=== PATIENT | female | born 1990 | race Two or more races ===

== ENCOUNTER 2016-09-14 12:17 | Observation (INO) | payer OTHER ==
[~2016-09-14 12:17] MED LIST: ZOFR4TAB3 SL
[2016-09-14] MEDS ORDERED: ACETAMINOPHEN 325 MG TAB PO PRN (13:30)
[2016-09-14] MEDS ORDERED: ONDANSETRON ODT 4 MG TAB PO PRN (13:30)
[2016-09-14] MEDS ORDERED: SODIUM CHLORIDE 0.9% FLUSH 5 ML FLUSH IVF SCH (13:30)
[2016-09-14] MEDS ORDERED: SODIUM CHLORIDE 0.9% FLUSH 5 ML FLUSH IVF PRN (13:30)
--- NOTE | 2016-09-14 13:34 | HHI.HP ---
HPI Chief Complaint non-reassuring testing, 12/09 BPP in office Date Seen: Sep 14, 2016 Time Seen: 11:30 Travel History International Travel<30 Days: No Contact w/Intl Traveler<30Days: No Known Affected Area: No History of Present Illness HPI 26 yo limited-[place] speaking G1 with EDC 10/02/16 presented to office for routine OB visit and testing due to size less than dates. Originally EFW was 46 %tile at 21 week anatomy scan; pt was measuring small so growth ordered at 31 weeks, EFW 29%tile at that time. Continued to measure small for dates so additional growth at 35 wks showed EFW only 13%tile. Today in office 48 BPP and UA doppler upper limits of normal with CHILO borderline at 7cm. NST was reactive, but due to 610 testing d/w pt recommendation for delivery based on non-reassuring testing and term-status, or at the very least extended monitoring with repeat official BPP at hospital. Pt has no complaints, pain 0/ 10, no contractions, no VB or LOF. Endorses normal movement. Pain 1/10 low pelvis pressure. 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 Para: 0 : 1 Last Menstrual Period: Dec 27, 2015 Miscarriage: 0 : 0 History Past Medical History Narrative Medical denies Obstetric History Obstetric History G1 = current, male Past Surgical History Narrative Surgical denies Family History Family History: Negative Social History Alcohol Use: No Tobacco Use: No Substance Abuse: No Allergies-Medications (Allergen,Severity, Reaction): Coded Allergies: No Known Allergies (Unverified , 05/31/16) Home Meds Active Scripts Ondansetron (Zofran ODT)4 Mg Tab4 Mg SL Q6H PRN (NAUSEA) #15 TAB Ref 2 FOR NAUSEA/VOMITING Prov:Bhumi Villalba MD 05/31/16 Review of Systems General / Constitutional: Weight Gain (18# since conception), No: Fever, Chills, Other Eyes: No: Diploplia, Blurred Vision, Visual changes, Pain, Photophobia HENT: No: Headaches, Vertigo, Lightheadedness Cardiovascular: No: Irregular Rhythm, Chest Pain or Discomfort, Palpitations, Tachycardia, Syncope, Varicosities, Edema, Cyanosis Respiratory: No: Cough, Short of Breath, Other Gastrointestinal: No: Nausea, Vomiting, Diarrhea Genitourinary: No: Decreased Urinary Output, Oliguria Musculoskeletal: No: Limited ROM, Weakness, Cramping, Edema, Pain Skin: No Rash, No Itching, No Dryness, No Lumps, No Change in Pigmentation, No Change in Nails, No Alopecia, No Lesions Neurologic: No: Weakness, Dizziness, Syncope, Focal Abnormalities, Coordination Problem, Headache, Slurred Speech, Seizures Psychiatric: No: Depression, Suicidal Ideations, Homicidal Ideation Endocrine: No: Heat Intolerance, Cold Intolerance, Polydipsia, Polyuria, Other Physical Exam Narrative GENERAL: Well-nourished, well-developed patient. SKIN: Warm and dry. HEAD: Normocephalic and atraumatic. EYES: No scleral icterus. No injection or drainage. ENT: No nasal drainage noted. Mucous membranes pink. Airway patent. NECK: Supple, trachea midline. No JVD. CARDIOVASCULAR: Regular rate and rhythm without murmurs, gallops, or rubs. RESPIRATORY: Breath sounds equal bilaterally. No accessory muscle use. BREASTS: deeferred ABDOMEN/GI: Abdomen soft, non-tender, bowel sounds present, no rebound, no guarding Gravid to [37] weeks size Fundal Height: [33] GENITOURINARY: External Genitalia: intact and normal in appearance BUS glands: [wnl] Cervix: [mid] Dilatation: [cl] Effacement: [th] Station: [-3] Presentation: [vtx] Membranes: [intact Uterine Contractions: [none] FHT's: Category: [I] in office Baseline: [130s] Reactive: [y] Variability: [y] Decels: [n] EXTREMITIES: No cyanosis or edema. BACK: Nontender without obvious deformity. No CVA tenderness. NEUROLOGICAL: Awake and alert. Motor and sensory grossly within normal limits. Five out of 5 muscle strength in all muscle groups. Normal speech. Data Data Vital Signs Reviewed: Yes Orders Us Ob Bpp Wo Nst (09/14/16 ) Place In Observation (09/14/16 ) Diet Liquid (09/14/16 Lunch) Vital Signs (Adult) PRINCESS.P4E-PRLXA AWAKE (09/14/16 13:17) ^ Heart (09/14/16 13:17) Activity Bed Rest With Brp (09/14/16 13:17) Complete Blood Count With Diff (09/14/16 13:17) Urinalysis - C+S If Indicated (09/14/16 13:17) Acetaminophen (Tylenol) (09/14/16 13:30) Sodium Chloride 0.9% Flush (Ns Flush) (09/14/16 13:30) Sodium Chloride 0.9% Flush (Ns Flush) (09/14/16 13:30) Ondansetron Odt (Zofran Odt) (09/14/16 13:30) Hold Clot (09/14/16 13:17) Specimen To Be Collected PRN (09/14/16 13:17) Assessment/Plan Problem List: (1) Antepartum non-reassuring heart rate or rhythm affecting care of mother (2) Small for gestational age fetus affecting management of mother, third trimester, single gestation Assessment and Plan 26 yo with EDC 10/02/16, 37w3d today, admit for extended monitoring, testing due to non-reassuring office testing 1) non-reassuring office testing, BPP 8: -2 for breathing & -2 for tone; reactive NST in office; borderline CHILO 7cm, significant reduction in growth from 46%>29%>13% from 21>31>35 weeks; discussed plan of care with Dr. Vivar, OB sound effects person; plan for AP admission, extended monitoring, repeat BPP at hospital (official); further decision to be made after additional testing performed 2) small for gestational age: grade 3 placenta, borderline UA doppler (upper limits of normal); no other abnormalities 3) GBS negative 4) status: male, vertex, Cat I tracing, needs repeat BPP evaluation due to 4/8 in office Discharge Planning not meeting criteria Estella Pagan MD Sep 14, 2016 13:34
[2016-09-14 15:26] LABS: AUTOMATED NEUTROPHIL # 4.6 TH/MM3 (1.8-7.7); BASOPHIL % 0.3 % (0.0-2.0); EOSINOPHIL # 0.1 TH/MM3 (0-0.4); EOSINOPHIL % 1.7 % (0.0-4.0); HEMATOCRIT 37.1 % (35.0-46.0); HEMO FLAGS DIFF FINAL; LYMPH % 23.5 % (9.0-44.0); LYMPHOCYTE # 1.6 TH/MM3 (1.0-4.8); MEAN CELL VOLUME 93.1 FL (80.0-100.0); MEAN CORPUSCULAR HEMOGLOBIN 31.4 PG (27.0-34.0); MEAN CORPUSCULAR HGB CONC 33.7 % (32.0-36.0); MONO % 7.2 % (0.0-8.0); NEUT % 67.3 % (16.0-70.0); PLATELET COUNT 207 TH/MM3 (150-450); RED BLOOD COUNT 3.99 MIL/MM3 (4.00-5.30); WHITE BLOOD COUNT 6.8 TH/MM3 (4.0-11.0)
[2016-09-14 15:51] LABS: BACTERIA, URINE RARE /hpf; BLOOD, URINE NEG (NEG); COMMENT (UR) CULT NOT INDICATED; CULTURE IF INDICATED CULT NOT INDICATED; GLUCOSE,URINE NEG (NEG); KETONE, URINE NEG (NEG); MUCUS URINE FEW /lpf (OCC); NITRITE,URINE NEG (NEG); SQUAMOUS EPITHELIAL CELL URINE 4 /hpf (0-5); URINE COLOR YELLOW (YELLW/STRAW)
== END 2016-09-14 15:55 | disposition home or self-care (01) ==
LOC: H2EA 12:17
PROVIDERS: ADMIT Obstetrics & Gynecology; ATTEND Obstetrics & Gynecology
DX: O36.5930 Maternal care for other known or suspected poor fetal growth, third trimester, not applicable or unspecified (principal); O76 Abnormality in fetal heart rate and rhythm complicating labor and delivery; Z3A.35 35 weeks gestation of pregnancy
CPT/HCPCS: 76816; 76819; 76820; 76821; 81001; 85025; G0378

== ENCOUNTER 2016-09-17 18:18 | Inpatient (IN) | payer OTHER ==
[~2016-09-17] VITALS: Ht 157.5 cm; Wt 51.7 kg
[2016-09-17 21:01] LABS: AUTOMATED NEUTROPHIL # 3.8 TH/MM3 (1.8-7.7); BASOPHIL % 0.2 % (0.0-2.0); EOSINOPHIL # 0.1 TH/MM3 (0-0.4); HEMATOCRIT 34.9 % (35.0-46.0); HEMO FLAGS DIFF FINAL; LYMPH % 26.5 % (9.0-44.0); LYMPHOCYTE # 1.6 TH/MM3 (1.0-4.8); MEAN CORPUSCULAR HEMOGLOBIN 31.5 PG (27.0-34.0); MEAN CORPUSCULAR HGB CONC 33.9 % (32.0-36.0); MONO % 9.2 % (0.0-8.0); NEUT % 62.1 % (16.0-70.0); PLATELET COUNT 189 TH/MM3 (150-450); RED BLOOD COUNT 3.75 MIL/MM3 (4.00-5.30); RED CELL DISTRIBUTION WIDTH 13.9 % (11.6-17.2); WHITE BLOOD COUNT 6.1 TH/MM3 (4.0-11.0)
[2016-09-17] MEDS ORDERED: NS 1000 ML XX PRN (21:15)
[2016-09-17] MEDS ORDERED: DINOPROSTONE 10 MG INSERT-LEAVE FOR 12 HOURS VAGINAL ONE (21:15)
[2016-09-17] MEDS ORDERED: NS 1000 ML IV PRN (21:30)
[2016-09-17] MEDS ORDERED: MINERAL OIL 10 ML VIAL TOP PRN (21:30)
[2016-09-17] MEDS ORDERED: NS 500 ML BOLUS IV PRN (21:30)
[2016-09-17] MEDS ORDERED: LIDOCAINE HCL 1% 50 ML VIAL INFIL PRN (21:30)
[2016-09-17] MEDS ORDERED: LIDOCAINE HCL 1% 50 ML VIAL I-DERMAL PRN (21:30)
[2016-09-17] MEDS ORDERED: LACTATED RINGER'S 1000 ML BOLUS IV PRN (21:30)
[2016-09-17] MEDS ORDERED: CITRIC ACID-SODIUM CITRATE LIQ 30 ML UDC PO SCH (21:30)
[2016-09-17] MEDS ORDERED: LACTATED RINGER'S 1000 ML IV SCH (21:30)
[2016-09-17] MEDS ORDERED: OXYTOCIN 30 UNITS 500ML PREMIX IV ONE (21:30)
[2016-09-17 21:34] LABS: BACTERIA, URINE RARE /hpf; BLOOD, URINE NEG (NEG); COMMENT (UR) CULT NOT INDICATED; CULTURE IF INDICATED CULT NOT INDICATED; GLUCOSE,URINE NEG (NEG); KETONE, URINE NEG (NEG); NITRITE,URINE NEG (NEG); SQUAMOUS EPITHELIAL CELL URINE 2 /hpf (0-5); URINE COLOR COLORLESS (YELLW/STRAW)
--- NOTE | 2016-09-17 22:06 | HHI.HP ---
HPI Chief Complaint term labor induction, per MFM due to IUGR Date Seen: Sep 17, 2016 Time Seen: 22:00 Travel History International Travel<30 Days: No Contact w/Intl Traveler<30Days: No Known Affected Area: No History of Present Illness HPI 26 yo G1 with saab male IUP at 37w6d, EDC 10/02/16, admit for scheduled term labor induction on MFM recommendation due to diagnosis of IUGR last week. Pt had been followed throughout with complication of S<D noted at 28 weeks, with growth ultrasound initially showing EF 29%tile, followed monthly to 13% and now <10%tile on MFM ultrasound on 09/14/16. Pt had reassuring testing that day with MFM/LAXMI sonographers and was discharged with plan for induction tonight. Patient is very limited in Occitan-speaking but her acts as sign language interpreter. Pain 1/10 currently, dull pressure in pelvis. No LOF or VB, no regular contractions. Endorses +FM. Para: 0 : 1 Last Menstrual Period: Dec 27, 2015 Miscarriage: 0 : 0 History Past Medical History Narrative Medical denies Obstetric History Obstetric History G1 = current, male; IUGR Past Surgical History Narrative Surgical denies Family History Family History: Negative Social History Alcohol Use: No Tobacco Use: No Substance Abuse: No Allergies-Medications (Allergen,Severity, Reaction): Coded Allergies: No Known Allergies (Unverified , 05/31/16) Home Meds Active Scripts Ondansetron (Zofran ODT)4 Mg Tab4 Mg SL Q6H PRN (NAUSEA) #15 TAB Ref 2 FOR NAUSEA/VOMITING Prov:Bhumi Villalba MD 05/31/16 Review of Systems ROS Limitations: Language Barrier General / Constitutional: Weight Gain (18# since beginning of ), No: Fever, Chills, Other Eyes: No: Diploplia, Blurred Vision, Visual changes, Pain, Photophobia HENT: No: Headaches, Vertigo, Lightheadedness Cardiovascular: No: Irregular Rhythm, Chest Pain or Discomfort, Palpitations, Tachycardia, Syncope, Varicosities, Edema, Cyanosis Respiratory: No: Cough, Short of Breath, Other Gastrointestinal: No: Nausea, Vomiting, Diarrhea Genitourinary: Pelvic Pain (dull pressure low pelvis), No: Decreased Urinary Output, Oliguria Musculoskeletal: No: Limited ROM, Weakness, Cramping, Edema, Pain Skin: No Rash, No Itching, No Dryness, No Lumps, No Change in Pigmentation, No Change in Nails, No Alopecia, No Lesions Neurologic: No: Weakness, Dizziness, Syncope, Focal Abnormalities, Coordination Problem, Headache, Slurred Speech, Seizures Psychiatric: No: Depression, Suicidal Ideations, Homicidal Ideation Endocrine: No: Heat Intolerance, Cold Intolerance, Polydipsia, Polyuria, Other Physical Exam Narrative GENERAL: Well-nourished, well-developed patient. SKIN: Warm and dry. HEAD: Normocephalic and atraumatic. EYES: No scleral icterus. No injection or drainage. ENT: No nasal drainage noted. Mucous membranes pink. Airway patent. NECK: Supple, trachea midline. No JVD. CARDIOVASCULAR: Regular rate and rhythm without murmurs, gallops, or rubs. RESPIRATORY: Breath sounds equal bilaterally. No accessory muscle use. BREASTS: deferred ABDOMEN/GI: Abdomen soft, non-tender, bowel sounds present, no rebound, no guarding Gravid to [38] weeks size Fundal Height: [33] GENITOURINARY: see RN note Uterine Contractions: [minimal] EXTREMITIES: No cyanosis or edema. BACK: Nontender without obvious deformity. No CVA tenderness. NEUROLOGICAL: Awake and alert. Motor and sensory grossly within normal limits. Five out of 5 muscle strength in all muscle groups. Normal speech. Data Data Vital Signs Reviewed: Yes Orders Admit To Inpatient (09/17/16 ) Vital Signs (Adult) .Per protocol (09/17/16 20:49) ^ Heart (09/17/16 20:49) ^ Amnioinfusion (09/17/16 20:49) Urinary Catheter Management .ONCE (09/17/16 20:49) Complete Blood Count With Diff (09/17/16 20:49) Hold Clot (09/17/16 20:49) Abo/Rh Blood Type (09/17/16 20:49) Urinalysis - C+S If Indicated (09/17/16 20:49) Resp Oxygen Non Rebreathe Mask (09/17/16 ) ^ Epidural / Intrathecal Infus (09/17/16 20:49) Specimen To Be Collected PRN (09/17/16 20:49) Admit To Inpatient (09/17/16 ) Diet Liquid (09/18/16 Breakfast) ^ Labor Induction (09/17/16 20:50) ^ Vaginal Insert (09/17/16 20:50) ^ Vaginal Lavage (09/17/16 20:50) ^ Heart (09/17/16 20:50) Dinoprostone Vag Insert (Cervidil Vag In (09/17/16 21:15) Sodium Chlor 0.9% 1000 Ml Inj (Ns 1000 M (09/17/16 21:15) Lactated Ringer's 1000 Ml Inj (Lr 1000 M (09/17/16 21:30) Lactated Ringer's 1000 Ml Inj (Lr 1000 M (09/17/16 21:30) Sodium Chlorid 0.9% 500 Ml Inj (Ns 500 M (09/17/16 21:30) Sodium Chlor 0.9% 1000 Ml Inj (Ns 1000 M (09/17/16 21:30) Lidocaine 1% Inj (50 Ml) (Xylocaine 1% I (09/17/16 21:30) Citric Acid-Sodium Citrate Liq (Bicitra (09/17/16 21:30) Fentanyl Inj (Fentanyl Inj) (09/17/16 21:30) Fentanyl Inj (Fentanyl Inj) (09/17/16 21:30) Oxytocin 30 Units-500ml Premix (Pitocin (09/17/16 21:30) Lidocaine 1% Inj (50 Ml) (Xylocaine 1% I (09/17/16 21:30) Light Mineral Oil (Muri-Lube Oil) (09/17/16 21:30) Labs Laboratory Tests Test 09/17/16 19:45 White Blood Count 6.1 Red Blood Count 3.75 Hemoglobin 11.8 Hematocrit 34.9 Mean Corpuscular Volume 93.0 Mean Corpuscular Hemoglobin 31.5 Mean Corpuscular Hemoglobin 33.9 Concent Red Cell Distribution Width 13.9 Platelet Count 189 Mean Platelet Volume 8.7 Neutrophils (%) (Auto) 62.1 Lymphocytes (%) (Auto) 26.5 Monocytes (%) (Auto) 9.2 Eosinophils (%) (Auto) 2.0 Basophils (%) (Auto) 0.2 Neutrophils # (Auto) 3.8 Lymphocytes # (Auto) 1.6 Monocytes # (Auto) 0.6 Eosinophils # (Auto) 0.1 Basophils # (Auto) 0.0 CBC Comment DIFF FINAL Differential Comment Urine Color COLORLESS Urine Turbidity CLEAR Urine pH 6.0 Urine Specific [place] 1.005 Urine Protein NEG Urine Glucose (UA) NEG Urine Ketones NEG Urine Occult Blood NEG Urine Nitrite NEG Urine Bilirubin NEG Urine Urobilinogen LESS THAN 2.0 Urine Leukocyte Esterase NEG Urine WBC 1 Urine Squamous Epithelial 2 Cells Urine Bacteria RARE Microscopic Urinalysis Comment CULT NOT INDICATED Blood Type O POSITIVE Blood Bank Comment Band and Hold Assessment/Plan Problem List: (1) Intrauterine growth restriction (IUGR) affecting care of mother, third trimester, single gestation Assessment and Plan 26 yo G1 at 37w6d admit for IOL due to IUGR, per [facility] recommendation 1) IUGR: symmetric, only noted last week; weight estimate had been slowly decreasing from time of anatomy scan at 21 wks from ~40%tile > 29%tile >13%tile and now <10%tile on 09/14/16; cause unknown; pt has had otherwise uncomplicated course 2) IOL: plan cervidil overnight, will evaluate tomorrow for additional induction methods as indicated; pt & have been made aware of risks of induction, including risk of failure and risk of intolerance based on IUGR status, risk of ; both voice understanding 3) GBS neg 4) h/o low lying placenta > resolved 5) h/o EIF on imaging > resolved on follow-up 6) status: male, vertex, EFW on 09/14/16 2321g (5#1oz) which is <10%tile for EGA; CHILO 7.8cm Discharge Planning not meeting criteria; anticipate 2-3 d Estella Pagan MD Sep 17, 2016 22:06
[2016-09-17 22:54] VITALS: RESP 18
[2016-09-17 23:30] VITALS: RESP 16; RESP 19
[2016-09-17 23:49] VITALS: BP 98/59; PULSE 83; TEMP 98.7
[2016-09-17 23:53] VITALS: RESP 18
[2016-09-18] VITALS (12 sets, daily range): BP systolic 89–109; BP diastolic 48–70; PULSE 66–93; RESP 16–18; TEMP 98.3; O2SAT 100
[2016-09-18] MEDS ORDERED: OXYTOCIN 30 UNITS-500ML PREMIX 500 ML IV SCH (10:00)
--- NOTE | 2016-09-18 12:52 | PD.LABORPN ---
Subjective Subjective patient feeling uncomfortable with contractions but declines epidural. denies LOF or VB; endorses good FM; pain 4/10 Objective Vital Signs Vital Signs Date Time Temp Pulse Resp B/P Pulse Ox O2 Delivery O2 Flow Rate FiO2 09/18/16 11:39 17 09/18/16 11:30 68 89/53 09/18/16 08:30 93 99/64 09/18/16 06:19 74 94/48 09/18/16 04:51 16 Objective Pelvic Exam: Cervix: [posterior, moderately soft] Dilatation: [cl] Effacement: [th] Station: [-3] Presentation: [vtx Membranes: [intact Uterine Contractions: [q2-3 min FHT's: Category: [I] Baseline: [130s] Reactive: [y] Variability: [y] Decels: [n] Assessment/Plan Problem List: (1) Intrauterine growth restriction (IUGR) affecting care of mother, third trimester, single gestation Assessment and Plan 26 yo G1 at 38w0d admit for IOL due to IUGR per M recommendation 1) IOL: s/p cervidil overnight, erin too frequently for cytotec & intolerant of keene bulb attempt; on low dose pitocin, continue to augment; suspect CPD with narrow arch and small anatomy, despite IUGR infant suspect induction may fail; spoke at length with pt & FOB who acts as staff interpreter (pt is Dutch speaking); AQA; will plan to recheck at 4p if no change proceed with as delivery is indicated 2) IUGR: cause unclear, EFW has decreased from ~40% > 29% > 13% to now <10%tile ; CHILO 7.8cm 3) status: male, vertex, Cat I tracing, EFW 5#1oz last week Estella Pagan MD Sep 18, 2016 12:52
[2016-09-18] MEDS ORDERED: LACTATED RINGER'S 1000 ML INJ 1,000 ML IV ONE (15:44)
--- NOTE | 2016-09-18 15:47 | HHI.PR ---
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
[2016-09-18] MEDS ORDERED: PERI8.6T PO (15:49)
[2016-09-18] MEDS ORDERED: PERC5TAB12 PO (15:49)
[2016-09-18] MEDS ORDERED: IBUP-232 PO (15:49)
[2016-09-18] MEDS ORDERED: LACTATED RINGER'S 1000 ML INJ 1,000 ML IV SCH ×2 (16:14→22:09)
[2016-09-18] MEDS ORDERED: ceFAZolin INJ 1,000 MG VIAL ONE (16:15)
[2016-09-18] MEDS ORDERED: ACETAMINOPHEN 1000 MG/100 ML VIAL IV ONE ×2 (16:15→17:15)
[2016-09-18] MEDS ORDERED: OXYTOCIN 10 UNIT/ML AMP ONE (16:15)
--- NOTE | 2016-09-18 17:13 | PD.OB.DELI ---
Procedure Note Section Procedure Pre Op Diagnosis: (1) Intrauterine growth restriction (IUGR) affecting care of mother, third trimester, single gestation (2) Failed induction of labor Post Op Diagnosis: (1) S/P primary low transverse (2) Intrauterine growth restriction (IUGR) affecting care of mother, third trimester, single gestation (3) Failed induction of labor Performed by Estella Pagan Procedure: Primary Low Transverse Sec Indication for delivery: Other (failed induction for IUGR at 38 wks) Informed consent obtained: For anesthesia, For procedure, Other (using Ukrainian language line elementary education tutor) Confirmed correct: Patient, Procedure, Site, Time-out taken Anesthesia: Spinal Medication prior to procedure: As documented in eMAR Monitoring during procedure: Blood pressure monitoring, pvc monitor, Pulse oximetry Urinary catheter: Inserted using sterile technique, To dependent drainage, ml urine output (150) Sterile preparation: Duraprep, In usual fashion, With drapes to expose affected area Position: Supine with wedge to right side Operative Features Skin Incision: Pfannenstiel Uterine Incision: Low transverse w/knife / blunt ext Membranes Ruptured: Artificially, Amount of liquid (scant), Appearance of fluid (clear) Presentation: Vertex Delivery of infant: Uneventful Infant: Male One Minute : 9 Five Minute : 9 Weight: 5#9oz Status of : Viable, Cord blood, Nursery present Placenta delivered: Intact Medications: Antibiotics (Ancef 1g preop) Estimated blood loss: 500 mL Procedure tolerated: Well Maternal Condition: Stable Condition: Stable (nursery status) Procedure in detail see dictated op note for full details Estella Pagan MD Sep 18, 2016 17:13
[2016-09-18] MEDS ORDERED: SIMETHICONE 80 MG CHEWABLE TAB PO PRN (17:15)
[2016-09-18] MEDS ORDERED: MORPHINE SULFATE PF 5 MG/10 ML VIAL ONE (17:15)
[2016-09-18] MEDS ORDERED: ONDANSETRON HCL 4 MG/2 ML VIAL IV PUSH PRN (17:15)
[2016-09-18] MEDS ORDERED: OXYTOCIN 30 UNITS-500ML PREMIX 500 ML IV ONE (17:15)
[2016-09-18] MEDS ORDERED: CITRIC ACID-SODIUM CITRATE LIQ 30 ML UDC PO SCH (17:15)
[2016-09-18] MEDS ORDERED: ACETAMINOPHEN 325 MG TAB PO PRN (17:15)
[2016-09-18] MEDS ORDERED: KETOROLAC TROMETHAMINE 60 MG/2 ML (IM) VIAL IM PRN (17:15)
[2016-09-18] MEDS ORDERED: ZOLPIDEM TARTRATE 5 MG TAB PO PRN (17:15)
[2016-09-18] MEDS ORDERED: SODIUM CHLORIDE 0.9% FLUSH 5 ML FLUSH IV PRN (17:15)
[2016-09-18] MEDS ORDERED: PREN29TA PO (18:04)
[2016-09-18] MEDS ORDERED: EPIDURAL-DIPHENHYDRAMINE HCL 50 MG/ML VIAL IV PUSH PRN (19:30)
[2016-09-18] MEDS ORDERED: EPIDURAL-DO NOT ADMINISTER ANTICOAGULANTS XX PRN (19:30)
[2016-09-18] MEDS ORDERED: EPIDURAL-NO SYSTEMIC NARCOTICS XX PRN (19:30)
[2016-09-18] MEDS ORDERED: EPIDURAL-NALOXONE HCL 0.4 MG/ML AMP IV PRN (19:30)
[2016-09-18] MEDS ORDERED: EPIDURAL-DIPHENHYDRAMINE HCL 50 MG CAP PO PRN (19:30)
[2016-09-18] MEDS ORDERED: SODIUM CHLORIDE 0.9% FLUSH 5 ML FLUSH IV SCH (21:00)
[2016-09-18] MEDS: DOCUSATE SODIUM 50 MG/SENNA 8.6 MG TAB PO SCH (21:08)
[2016-09-19] MEDS ORDERED: OXYTOCIN 30 UNITS-500ML PREMIX 500 ML IV PRN (03:15)
[2016-09-19] MEDS: oxyCODONE/ACETAMINOPHEN 5 MG/325 MG TAB PO PRN ×2 (04:16→13:29)
[2016-09-19] MEDS: IBUPROFEN 600 MG TAB PO PRN ×2 (04:16→13:29)
[2016-09-19 06:01] LABS: AUTOMATED NEUTROPHIL # 7.9 TH/MM3 (1.8-7.7); BASOPHIL % 0.1 % (0.0-2.0); EOSINOPHIL # 0.1 TH/MM3 (0-0.4); EOSINOPHIL % 0.5 % (0.0-4.0); HEMATOCRIT 35.8 % (35.0-46.0); HEMO FLAGS DIFF FINAL; LYMPH % 14.1 % (9.0-44.0); LYMPHOCYTE # 1.4 TH/MM3 (1.0-4.8); MEAN CELL VOLUME 92.5 FL (80.0-100.0); MEAN CORPUSCULAR HEMOGLOBIN 30.5 PG (27.0-34.0); MONO % 6.5 % (0.0-8.0); NEUT % 78.8 % (16.0-70.0); PLATELET COUNT 175 TH/MM3 (150-450); RED BLOOD COUNT 3.87 MIL/MM3 (4.00-5.30); RED CELL DISTRIBUTION WIDTH 13.8 % (11.6-17.2)
[2016-09-19 07:24] VITALS: BP 99/64; PULSE 74; RESP 18; TEMP 98.6
--- NOTE | 2016-09-19 08:29 | HHI.OB ---
Subjective Post Operative Day: 1 [place] [address]. min ambulation, passing gas Objective Vitals/I&O Vital Signs Date Time Temp Pulse Resp B/P Pulse Ox O2 Delivery O2 Flow Rate FiO2 09/19/16 07:24 98.6 74 18 99/64 09/18/16 19:00 70 18 09/18/16 19:00 97/67 09/18/16 18:15 16 100 09/18/16 18:15 67 106/70 09/18/16 17:33 66 16 106/68 09/18/16 17:28 109/68 09/18/16 17:28 98.3 66 16 09/18/16 14:30 70 102/66 09/18/16 11:39 17 09/18/16 11:30 68 89/53 09/18/16 08:30 93 99/64 Result Diagram: 09/19/16 0439 Objective Remarks GENERAL: Well-nourished, well-developed patient. CARDIOVASCULAR: Regular rate and rhythm without murmurs, gallops, or rubs. RESPIRATORY: Breath sounds equal bilaterally. No accessory muscle use. ABDOMEN/GI: Abdomen soft, non-tender, bowel sounds present. Incision: dressing Clean, dry and intact. Fundus: Firm, non-tender at umbilicus. GENITOURINARY: Light to moderate bleeding. EXTREMITIES: No cyanosis or edema, non-tender, without signs of DVT. Medications and IVs Current Medications Medications (Trade) Dose Ordered Sig/Erasmo Route Start Time Stop Time Status Last Admin (Lr 1000 ml Inj) 1,000 ml @ 100 mls/hr Q10H IV 09/18/16 22:09 09/19/16 18:08 09/19/16 01:01 (NS Flush) 2 ml BID IV 09/18/16 21:00 (NS Flush) 2 ml UNSCH PRN IV 09/18/16 17:15 (Mylicon Chew) 80 mg QID PRN PO 09/18/16 17:15 (Tylenol) 650 mg Q6H PRN PO 09/18/16 17:15 (Motrin) 600 mg Q6H PRN PO 09/18/16 17:15 09/19/16 04:16 (Toradol Inj) 30 mg Q6H PRN IM 09/18/16 17:15 09/19/16 17:14 (Percocet 5-325 Mg) 1 tab Q4H PRN PO 09/18/16 17:15 (Percocet 5-325 Mg) 2 tab Q4H PRN PO 09/18/16 17:15 09/19/16 04:16 (Vane-Colace) 2 tab Q12H PO 09/18/16 21:00 09/18/16 21:08 (Ambien) 5 mg HS PRN PO 09/18/16 17:15 (M-M-R Ii Inj) 0.5 ml ONCE ONCE SQ 09/19/16 16:00 09/19/16 16:01 (Boostrix Inj) 0.5 ml ONCE ONCE IM 09/19/16 16:00 09/19/16 16:01 (Zofran Inj) 4 mg Q6H PRN IV PUSH 09/18/16 17:15 Miscellaneous Information NO SYSTEMIC NARCOTICS TO BE GIVEN FO... UNSCH PRN XX 09/18/16 19:30 09/19/16 19:29 (Narcan Inj) 0.4 mg UNSCH PRN IV 09/18/16 19:30 09/19/16 19:29 (Benadryl Inj) 25 mg Q6H PRN IV PUSH 09/18/16 19:30 09/19/16 19:29 (Benadryl) 50 mg Q6H PRN PO 09/18/16 19:30 09/19/16 19:29 Miscellaneous Information ALL NURSING DEPARTMENTS UNSCH PRN XX 09/18/16 19:30 09/19/16 19:29 Assessment/Plan Problem List: (1) Intrauterine growth restriction (IUGR) affecting care of mother, third trimester, single gestation Assessment and Plan 26 yo G1 at 37w6d admitted for IOL due to IUGR, per M recommendation POD 1 cd- continue routine care, encourage ambulation,will need straight cath if unable to void. consultation prn Dispo pod 2 or 3 Discharge Planning not meeting criteria; anticipate 2-3 d Jaquelin Leggett MD Sep 19, 2016 08:29
[2016-09-19] MEDS: DOCUSATE SODIUM 50 MG/SENNA 8.6 MG TAB PO SCH ×2 (09:00→21:00)
[2016-09-19] MEDS ORDERED: DIPHTH/TETANUS/ACEL PERTUSSIS (BOOSTER) 0.5 ML VIAL/PFS IM ONE (16:00)
[2016-09-19] MEDS ORDERED: MEASLES, MUMPS, RUBELLA VACCINE 0.5 ML VIAL SQ ONE (16:00)
[2016-09-20] MEDS: oxyCODONE/ACETAMINOPHEN 5 MG/325 MG TAB PO PRN ×2 (05:23→16:59)
[2016-09-20] MEDS: IBUPROFEN 600 MG TAB PO PRN ×2 (05:24→16:59)
[2016-09-20] MEDS: DOCUSATE SODIUM 50 MG/SENNA 8.6 MG TAB PO SCH ×3 (08:54→21:55)
--- NOTE | 2016-09-20 12:29 | HHI.OB ---
Subjective Post Operative Day: 2 Remarks s/p primary LTCD for failed IOL due to IUGR Objective Result Diagram: 09/19/16 0439 Objective Remarks GENERAL: Well-nourished, well-developed patient. CARDIOVASCULAR: Regular rate and rhythm without murmurs, gallops, or rubs. RESPIRATORY: Breath sounds equal bilaterally. No accessory muscle use. ABDOMEN/GI: Abdomen soft, non-tender, bowel sounds present. Incision: Clean, dry and intact. Fundus: Firm, non-tender at umbilicus. GENITOURINARY: Light to moderate bleeding. EXTREMITIES: No cyanosis or edema, non-tender, without signs of DVT. Medications and IVs Current Medications Medications (Trade) Dose Ordered Sig/Erasmo Route Start Time Stop Time Status Last Admin (NS Flush) 2 ml BID IV 09/18/16 21:00 (NS Flush) 2 ml UNSCH PRN IV 09/18/16 17:15 (Mylicon Chew) 80 mg QID PRN PO 09/18/16 17:15 (Tylenol) 650 mg Q6H PRN PO 09/18/16 17:15 (Motrin) 600 mg Q6H PRN PO 09/18/16 17:15 09/20/16 05:24 (Percocet 5-325 Mg) 1 tab Q4H PRN PO 09/18/16 17:15 09/20/16 05:23 (Percocet 5-325 Mg) 2 tab Q4H PRN PO 09/18/16 17:15 09/19/16 13:29 (Vane-Colace) 2 tab Q12H PO 09/18/16 21:00 09/20/16 08:54 (Ambien) 5 mg HS PRN PO 09/18/16 17:15 (Zofran Inj) 4 mg Q6H PRN IV PUSH 09/18/16 17:15 Assessment/Plan Problem List: (1) Intrauterine growth restriction (IUGR) affecting care of mother, third trimester, single gestation Assessment and Plan 26 yo G1 s/p primary LTCD at 38w0d for failed IOL and IUGR POD 2 cd- continue routine care, encourage ambulation, anticipate d/c home tmrw plan infant circ today all care instructions went over in detail with FOB today Discharge Planning routine Estella Pagan MD Sep 20, 2016 12:29
--- NOTE | 2016-09-21 07:56 | MP ---
cc: ALBERTINA BALL DATE OF SURGERY 09/18/2016 DATE OF 1990 PREOPERATIVE DIAGNOSIS 1. Aguirre term at 38 weeks 2. Intrauterine growth restriction 3. Failed induction of labor POSTOPERATIVE DIAGNOSIS 1. Aguirre term at 38 weeks 2. Intrauterine growth restriction 3. Failed induction of labor 4. Postop day number zero INDICATIONS Farideh Melgar is a 26-year-old 1 now para 1-0-0-1 who was seen and evaluated in the office measuring size less than dates with finding at 37 weeks of growth restriction, estimated weight less than 10th percentile. The patient was seen and evaluated by maternal medicine specialist who agreed that delivery was indicated at 38 weeks. The patient was brought in for induction overnight with Cervidil. She began erin every two minutes, but was still closed, thick and high. Burroughs bulb was unsuccessful due to patient intolerance. Pitocin was started and the patient continued to contract regularly, but no cervical progression was made over approximately 20 hours. As such, it was decided that delivery via was indicated. PROCEDURE PERFORMED Primary low transverse delivery. SURGEON Albertina Ball MD TYPE OF ANESTHESIA Spinal ESTIMATED BLOOD LOSS 500 mL IV FLUID REPLACEMENT 1200 mL URINE OUTPUT 150 mL of clear urine draining in the Burroughs bag at the end of the procedure. PROPHYLAXIS Ancef 1 gram IV was given preoperatively. SCD's were on and functioning throughout the entire case. INTRAOPERATIVE FINDINGS Include a vigorous viable male weighing 5 pounds 9 ounces, 's of 9 and 9, clear amniotic fluid, normal-appearing placenta. The uterus, bilateral fallopian tubes and ovaries were within normal limits. SPECIMENS None PROCEDURE IN DETAIL After reviewing the informed consent, the patient was taken to the operating suite where a time-out was performed to identify the patient, planned procedure and any known allergies to drugs or drug products. The patient was then placed sitting up on the exam table and spinal anesthesia was administered without difficulty and found to be adequate. The patient was then laid in dorsal supine position with a bump under her right side and the abdomen and perineum were prepped and draped in normal standard fashion. A Burroughs catheter was placed using sterile technique. A Pfannenstiel's skin incision was then made with a scalpel, carried down to the underlying layer of fascia with the Bovie. Fascia was incised in the midline. The incision was extended laterally with sharp dissection using Browning scissors. Superior aspect of the fascial incision was elevated and rectus muscles were dissected off sharply. This was repeated inferiorly. The rectus muscles were then in the midline. Peritoneum was identified and entered bluntly. Incision was extended with good visualization. Bladder blade was placed. A bladder flap was not made. A low transverse uterine incision was made with a scalpel. On entry into the amniotic sac, clear fluid was noted. 's head was grasped and elevated out through the incision. The rest of the body readily delivered. The infant's nose and mouth were suctioned with bulb suction. The cord was doubly clamped and cut. The infant was handed off to the awaiting nursery staff. Placenta was delivered spontaneously with gentle cord traction and fundal massage. Uterus was then exteriorized and cleared of all clots and debris with sterile moist lap sponges and hysterotomy was repaired in a double layer first with number one Vicryl in a running layer and then in an imbricating fashion. Excellent hemostasis was noted. Irrigation with suction was performed. The uterus was returned to the abdomen. Additional irrigation with suction was performed. The peritoneum was closed in a running layer with 2-0 chromic. The fascia was closed in running layer with #1 Vicryl. Subcutaneous tissue was irrigated copiously with warm sterile saline and excellent hemostasis was noted. 4-0 Monocryl was used to close the skin in subcuticular fashion. The skin was cleaned and dried and Primapore dressing was placed. The procedure was concluded at this point. The patient tolerated the procedure well. DISPOSITION The patient's estimated length of stay is two to three postoperative days. Infant is nursery status. MD ARMIN Posada/TROY /5:08 PM /7:44 AM NKECHI
--- NOTE | 2016-09-21 08:10 | HHI.OB ---
Subjective Post Operative Day: 3 Remarks burning with urination, bottlefeeding, ambulating Objective Vitals/I&O vss afeb Result Diagram: 09/19/16 0439 Objective Remarks GENERAL: Well-nourished, well-developed patient. CARDIOVASCULAR: Regular rate and rhythm without murmurs, gallops, or rubs. RESPIRATORY: Breath sounds equal bilaterally. No accessory muscle use. ABDOMEN/GI: Abdomen soft, non-tender, bowel sounds present. Incision: Clean, dry and intact. Fundus: Firm, non-tender at umbilicus. GENITOURINARY: Light to moderate bleeding. EXTREMITIES: No cyanosis or edema, non-tender, without signs of DVT. Medications and IVs Current Medications Medications (Trade) Dose Ordered Sig/Erasmo Route Start Time Stop Time Status Last Admin (NS Flush) 2 ml BID IV 09/18/16 21:00 (NS Flush) 2 ml UNSCH PRN IV 09/18/16 17:15 (Mylicon Chew) 80 mg QID PRN PO 09/18/16 17:15 (Tylenol) 650 mg Q6H PRN PO 09/18/16 17:15 (Motrin) 600 mg Q6H PRN PO 09/18/16 17:15 09/20/16 16:59 (Percocet 5-325 Mg) 1 tab Q4H PRN PO 09/18/16 17:15 09/20/16 16:59 (Percocet 5-325 Mg) 2 tab Q4H PRN PO 09/18/16 17:15 09/19/16 13:29 (Vane-Colace) 2 tab Q12H PO 09/18/16 21:00 09/20/16 08:54 (Ambien) 5 mg HS PRN PO 09/18/16 17:15 (Zofran Inj) 4 mg Q6H PRN IV PUSH 09/18/16 17:15 Assessment/Plan Problem List: (1) Intrauterine growth restriction (IUGR) affecting care of mother, third trimester, single gestation Assessment and Plan 26 yo G1 s/p primary LTCD at 38w0d for failed IOL and IUGR POD 3 cd- continue routine care, encourage ambulation, anticipate d/c home today UA C&S all care instructions went over in detail with FOB today Discharge Planning routine Attending Attestation pt seen by Marjroie Lamb MD Sep 21, 2016 08:10
[2016-09-21] MEDS: DOCUSATE SODIUM 50 MG/SENNA 8.6 MG TAB PO SCH (09:00)
[2016-09-21 09:28] LABS: BACTERIA, URINE MANY /hpf; BLOOD, URINE MOD (NEG); GLUCOSE,URINE NEG (NEG); KETONE, URINE NEG (NEG); NITRITE,URINE POS (NEG); SQUAMOUS EPITHELIAL CELL URINE 1 /hpf (0-5); URINE COLOR YELLOW (YELLW/STRAW)
[2016-09-21 09:29] LABS: COMMENT (UR) CULTURE INDICATED; CULTURE IF INDICATED CULTURE INDICATED
[2016-09-21] MEDS: IBUPROFEN 600 MG TAB PO PRN (16:55)
[2016-09-21] MEDS: oxyCODONE/ACETAMINOPHEN 5 MG/325 MG TAB PO PRN (16:55)
== END 2016-09-21 19:34 | disposition home or self-care (01) | DRG 766 ==
LOC: H2EA 18:18 → H1EA 09-18 18:31
PROVIDERS: ADMIT Obstetrics & Gynecology; ATTEND Obstetrics & Gynecology
PROC: 3E0P7GC Introduction of Other Therapeutic Substance into Female Reproductive, Via Natural or Artificial Opening (ICD-10-PCS; 2016-09-17)
PROC: 10D00Z1 Extraction of Products of Conception, Low, Open Approach (ICD-10-PCS; principal; 2016-09-18)
DX: O36.5930 Maternal care for other known or suspected poor fetal growth, third trimester, not applicable or unspecified (principal); O61.0 Failed medical induction of labor; O76 Abnormality in fetal heart rate and rhythm complicating labor and delivery; Z37.0 Single live birth; Z3A.38 38 weeks gestation of pregnancy
CPT/HCPCS: 59025; 76816; 76819; 76820; 76821; 81001; 85025; 86900; 86901; 87077; 87086; 87186; 90715; G0378; J0131; J0690; J2274; J2590; J3010; J7120